=== PATIENT | female | born 1990 | race American Indian/Alaskan Native ===

== ENCOUNTER 2019-04-02 11:18 | Emergency (ER) | payer OTHER ==
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
[2019-04-02] MEDS ORDERED: FLEXERIL PO ONE (12:12)
[2019-04-02] MEDS ORDERED: IBUPROFEN PO ONE (12:12)
[2019-04-02] MEDS ORDERED: NORCO 5/325 PO ONE (12:12)
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
[2019-04-02 12:58] VITALS: BP 141/74
== END 2019-04-02 12:57 | disposition home or self-care (01) ==
LOC: ED 11:18
DX: S16.1XXA Strain of muscle, fascia and tendon at neck level, initial encounter (principal); S39.012A Strain of muscle, fascia and tendon of lower back, initial encounter; E11.9 Type 2 diabetes mellitus without complications; Z79.899 Other long term (current) drug therapy; V89.2XXA Person injured in unspecified motor-vehicle accident, traffic, initial encounter; Y93.89 Activity, other specified; Y92.89 Other specified places as the place of occurrence of the external cause; Y99.8 Other external cause status
CPT/HCPCS: 99283